=== PATIENT | female | born 1965 | race American Indian/Alaskan Native ===

== ENCOUNTER 2017-06-16 12:27 | Outpatient (CLI) | payer OTHER ==
--- NOTE | 2017-06-19 07:56 | Fluoroscopy Report ---
FLUOROSCOPY ARTHROGRAM SHOULDER LEFT History: Complete tear of left rotator cuff Findings: Informed consent was obtained. Sterile technique was utilized. 1% lidocaine for skin anesthesia. Using fluoroscopy guidance, a 22-gauge spinal needle was advanced into the right glenohumeral joint. Placement was confirmed by injection of a small amount of Omnipaque-300 contrast agent. 4 fluoroscopic images were captured. Approximately 15 cc of a solution containing 0.1 mmol gadolinium was injected for MR arthrogram. No complications. Impression: Successful left shoulder arthrogram for MR.
--- NOTE | 2017-06-19 09:05 | Magnetic Resonance Report ---
MRI UPPER EXTREMITY JOINT LEFT WITH CONTRAST HISTORY: Complete tear of left rotator cuff. TECHNIQUE: Multisequence, multiplanar MRI was obtained after intra-articular contrast administration. COMPARISON: None. FINDINGS: Complete rupture of the distal supraspinatus tendon is identified at its insertion site on the proximal humerus. The tendon is retracted to the level of the a.c. joint. There is partial fatty atrophy of the supraspinatus muscle suggesting a relatively chronic process. There is mild thickening and increased intrinsic signal involving the subscapularis and infraspinatus tendons consistent with tendinosis. The teres minor tendon is within normal limits. There is increased signal and thickening of the horizontal/intra-articular portion of the biceps tendon consistent with tendinosis or longitudinal tear. No gross labral defect or SLAP lesion is identified. The glenohumeral ligaments are grossly intact. Mild osteoarthritic changes are identified at the glenohumeral joint and acromioclavicular joint. No fracture, dislocation or ligamentous injury. IMPRESSION: Full-thickness tear of the distal supraspinatus tendon as described. Tendinosis of the infraspinatus tendon and subscapularis tendon. Tendinosis versus longitudinal tear in the long head of the biceps tendon. Mild osteoarthritic changes.
== END 2017-06-16 12:28 | disposition home or self-care (01) ==
LOC: MRI 12:27
PROVIDERS: ATTEND Orthopaedic Surgery
DX: M75.122 Complete rotator cuff tear or rupture of left shoulder, not specified as traumatic (principal); Z88.0 Allergy status to penicillin; Z88.2 Allergy status to sulfonamides; Z98.890 Other specified postprocedural states; Z90.710 Acquired absence of both cervix and uterus
CPT/HCPCS: 23350; 73040; 73222; A9577; Q9965